=== PATIENT | male | born 1980 | race Caucasian/White ===

== ENCOUNTER → 2016-09-07 | Outpatient (CLI) | payer OTHER ==
[~2016-09-07] MED LIST: ACETAMINOP160 MG/12 PEG; ACID CONTROLLER20 MG GT; BETAPACE80 MG GT; CARDIZEM30 M1 PEG; CLARITIN10 M2 PEG; CLARITIN10 M3 GT; COLACE50 MG/5 ML PEG; DIASENSE MAGNE400 MG GT; FEOSOL300 MG/5 M GT; FEOSOL300 MG/5 M PO; FERROUS GL325 ( 37.5 PEG; FIBER-CAPS625 MG PEG; IBUPROFEN100 MG/52 PEG; IPRAT-ALBUT 0.5-3 ML INH; ISORDIL5 MG PEG; KEPPRA100 MG/ML GT; KEPPRA1000 MG PEG; KEPPRA500 MG/51 GT; LASIX20 MG GT; LASIX20 MG PO; LIORESAL10 MG GT; LISINOPRIL2.5 MG GT; LISINOPRIL2.5 MG PO; LORTAB 10 MG-3473 ML GT; LOVENOX40 MG/0.4 SUBQ; MAG-OX 400400 M1 GT; METOPROLOL TAR25 MG GT; METOPROLOL TAR25 MG PEG; MILK OF MAGNESIA GT; MILK OF MAGNESIA PEG; PAIN RELIE GT; POTASSIUM GT; POTASSIUM20 MEQ/PKT PO; PROAMATINE10 MG GT; PROAMATINE10 MG PEG; PROAMATINE10 MG PO; PROMOD946 ML PEG
== END | disposition home or self-care (01) ==
LOC: CECH 12:16
DX: J90 Pleural effusion, not elsewhere classified (principal)
CPT/HCPCS: 93308

== ENCOUNTER 2016-09-08 13:39 | Inpatient (IN) | payer OTHER ==
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
--- NOTE | ~2016-09-08 | EKG ---
PATIENT: KIMBERLEE SALMON UNIT #: [id number] Ventricular Rate: 129 BPM Atrial Rate: 129 BPM P-R Interval: 146 ms QRS Duration: 78 ms Q-T Interval: 308 ms QTC Calculation(Bezet): 451 ms P Henderson: 50 degrees Calculated R Henderson: 81 degrees Calculated T Henderson: 50 degrees Diagnosis Line: Sinus tachycardia Diagnosis Line: Otherwise normal ECG Diagnosis Line: When compared with ECG of 09-AUG-2016 05:41, Diagnosis Line: No significant change was found Diagnosis Line: Confirmed by AALIYAH PURCELL MD ([id number]) on 09/09/2016 Diagnosis Line: 7:52:09 AM INTERPRETING MD: JAZZY ASHER
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
--- NOTE | ~2016-09-08 | CR72 ---
[facility] A Service of [facility] RADIOLOGY TEXT RESULTS PATIENT: KIMBERLEE SALMON LOCATION: [facility] : 78 UNIT #: [id number] AGE: [address]: Jana Rahman MD SEX: M ORDER DR: [id number] [facility] [address] [address] [id number] E MR#: [id number] Acc #: [id number] NAME: KIMBERLEE SALMON : 1980 SEX: M STUDY DATE/TIME: 09/08/2016 12:59 UNIT: [place] ROOM: STUDY DESCRIPTION: CR Chest Single View Portable Attending Physician: Pascual Jansen M.D. Ordering Physician: Pascual Jansen M.D. Primary Care Physician: No Primary Care Physician MEDICAL IMAGING REPORT This report is preliminary unless electronic signature is present EXAM Chest portable. DATE OF EXAM 09/08/2016, 1259 hours. CLINICAL HISTORY 1-week history of fever, tachycardia, congestion. COMPARISON 08/09/2016 FINDINGS Upright PA and lateral views of the chest demonstrate right PICC line with tip in SVC, left PICC line with tip in SVC without change. There is stable cardiomegaly and benign calcified granulomatous nodes. No acute pulmonary densities or pleural effusions are seen. IMPRESSION 1. Stable positioning of bilateral PICC line with tip in SVC. 2. Stable mild cardiomegaly. 3. The lungs are clear and there are no effusions. Dictated by... Dottie Reyes M.D. THIS IS AN ELECTRONICALLY VERIFIED REPORT Dottie Reyes M.D. at 09/08/2016 6:17 PM ZACH/pearl TD: 09/08/2016 16:43 JOB #: [id number] [facility] A Service of [facility] RADIOLOGY TEXT RESULTS PATIENT: KIMBERLEE SALMON LOCATION: [facility] : [birth year] UNIT #: [id number] AGE: [address]: Jana Rahman MD SEX: M ORDER DR: MEDICAL IMAGING REPORT COPY
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
--- NOTE | ~2016-09-08 | FU ---
[facility] Nutrition Therapy DATE: 09/15/16 Patient: KIMBERLEE SALMON Physician: SARAH Address: [facility] [address] Room/Bed: [address] [place] [address], Zip: [place] [address] Admit Date: 09/08/16 Date of : [birth year] Height: 6 0 Weight: 159 72.4 NUTRITION MONITORING/FOLLOW-UP: Reason: PT SEEN FOR FOLLOW-UP/ENTERAL NUTRITION SUPPORT DX: ENDOCARDITIS, LOW EF, FLU Anthropometrics: 6'0", WT: 159# (72 KG), BMI: 21.6 -WEIGHTS HAVE BEEN STABLE SINCE ADMIT Labs: CREAT: 0.5, CA+:10.3 Meds: NACL, PEPCID, MILK OF MAGNESIA I&O's: 2300/3305 Skin: STAGE 1 PRESSURE ULCER GROIN AREA; SKIN TEAR GROIN AREA; PRESSURE ULCER STAGE 1 COCCYX Estimated Nutrition Needs: [id number] KCAL 106-127 G PRO Assessment: CHART REVIEWED AND EVENTS NOTED. PT SEEN FOR ENTERAL NUTRITION SUPPORT FOLLOW-UP. PT NON-VERBAL RECEIVING RECEIVING ALTERNATIVE NUTRITION SUPPORT OF TWO SUSY HN @ 55 ML/HR. PER RN AND CHART, PT TOLERATING EN. PER 24 HOUR PUMP HISTORY, PT RECEIVING ~93% TOTAL ESTIMATED NEEDS. NO FAMILY IN ROOM AT THIS TIME. RD TO CONTINUE TO FOLLOW. -TUBE FEEDS PROVIDE 2640 KCAL, 110 G PRO, 924 ML FREE H20 Dx: INADEQUATE PROTEIN-ENERGY INTAKE R/T ENTERAL NUTRITION NOT YET INTIATED AEB NPO STATUS, NO ENTERAL NUTRITION SUPPORT IN PLACE. -RESOLVED INADEQUATE ORAL INTAKE R/T PMH AEB NEED FOR ALTERNATIVE NUTRITION SUPPORT. Intervention: 1. ENTERAL NUTRITION IN PLACE Monitoring, Evaluation and Goals: 1. ENTERAL NUTRITION; PROVIDE ~80-100% ESTIMATED NUTRIENT NEEDS 2. WEIGHTS; PROMOTE WEIGHT MAINTENANCE; PROMOTE LEAN BODY MASS 3. LABS; WNL 4. SKIN; PROMOTE SKIN HEALING MONITOR: -TF RATE/RESIDUALS -WEIGHTS [facility] Nutrition Therapy DATE: 09/15/16 Patient: KIMBERLEE SALMON Physician: SARAH Address: [address] Room/Bed: [address] [place] [address], Zip: [place] [address] Admit Date: 09/08/16 Date of : [birth year] Height: 6 0 Weight: 159 72.4 -LABS Recommendations: 1. CONTINUE CURRENT ENTERAL NUTRITION SUPPORT OF TWO SUSY HN @ 55 ML/HR -ADEQUATE FOR PT'S CURRENT ESTIMATED NEEDS CONTINUE FREE H20 FLUSHES PER MD 2. ENSURE HOB IS UPRIGHT TO MINIMUM OF 30-[address] EN ADMINISTR[address] WILL F/U PER PROTOCOL PT IS MILDLY COMPROMISED Respectfully, SALVATORE JOHNSON MS, RD, LD Food and Nutritional Services [facility] cc: client file
--- NOTE | ~2016-09-08 | CR72 ---
[facility] A Service of [facility] RADIOLOGY TEXT RESULTS PATIENT: KIMBERLEE SALMON LOCATION: [place] [address]- : [birth year] UNIT #: [id number] AGE: [address]: Myke Venegas MD SEX: M ORDER DR: [id number] [facility] [address] [place], [place] [address] [id number] I MR#: [id number] Acc #: [id number] NAME: KIMBERLEE SALMON : 1980 SEX: M STUDY DATE/TIME: 09/13/2016 22:09 UNIT: [facility] ROOM: [facility] STUDY DESCRIPTION: CR Chest Single View Portable Attending Physician: Myke Venegas M.D. Ordering Physician: Myke Venegas M.D. Primary Care Physician: No Primary Care Physician MEDICAL IMAGING REPORT This report is preliminary unless electronic signature is present EXAM AP portable chest 09/13/2016 HISTORY A 36-year-old male with 3-yxa-5-week history of shortness of air and congestion. History of endocarditis. TECHNIQUE AP portable upright chest x-ray. FINDINGS The exam suggests mild patchy left lung base infiltrate behind the heart is newly visible since the recent study of 09/08/2016. Remaining portions of both lungs are clear. Heart size and pulmonary vascularity are within normal limits. PICC in good position. IMPRESSION Mild infiltrate or atelectasis in the left lung base, new since 09/08/2016. Dictated by... Yo Hollingsworth M.D. THIS IS AN ELECTRONICALLY VERIFIED REPORT Yo Hollingsworth M.D. at 09/14/2016 9:53 PM PAUL/edda TD: 09/14/2016 06:24 JOB #: [id number] MEDICAL IMAGING REPORT Page 1 of 1 COPY
--- NOTE | ~2016-09-08 | US140 ---
[facility] A Service of [facility] RADIOLOGY TEXT RESULTS PATIENT: KIMBERLEE SALMON LOCATION: [facility] 55 : [birth year] UNIT #: [id number] AGE: [address]: Myke Venegas MD SEX: M ORDER DR: [id number] [facility] [address] [place], [place] [address] [id number] MR#: [id number] Acc #: [id number] NAME: KIMBERLEE SALMON : 1980 SEX: M STUDY DATE/TIME: 09/13/2016 21:20 UNIT: [facility] ROOM: [facility] STUDY DESCRIPTION: US UE Veins Unilat or Ltd Stdy Attending Physician: Myke Venegas M.D. Ordering Physician: Myke Venegas M.D. Primary Care Physician: Primary Care Physician No MEDICAL IMAGING REPORT This report is preliminary unless electronic signature is present EXAM Venous Doppler ultrasound, right arm, 09/13/2016 HISTORY 36-year-old male with 3-day history of right upper extremity swelling. Recent removal of right arm PICC. FINDINGS TECHNIQUE Venous ultrasound examination of the right upper extremity was performed using grayscale, spectral Doppler and color flow Doppler imaging. FINDINGS The examination is negative. There is no evidence of deep venous thrombus within the right internal jugular vein, subclavian vein, axillary vein or brachial veins. No superficial venous thrombus is seen within the cephalic or basilic veins. IMPRESSION Negative examination. No evidence of right upper extremity venous thrombosis. Dictated by... Yo Hollingsworth M.D. THIS IS AN ELECTRONICALLY VERIFIED REPORT Yo Hollingsworth M.D. at 09/14/2016 9:53 PM PAUL/jerome TD: 09/14/2016 06:24 JOB #: [id number] [facility] A Service [facility] RADIOLOGY TEXT RESULTS PATIENT: KIMBERLEE SALMON LOCATION: [facility] : [birth year] UNIT #: [id number] AGE: [address]: Myke Venegas MD SEX: M ORDER DR: MEDICAL IMAGING REPORT Page 1 of 1 COPY
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
[~2016-09-08 13:39] MED LIST changes: -ACID CONTROLLER20 MG GT; -BETAPACE80 MG GT; -CLARITIN10 M3 GT; -FEOSOL300 MG/5 M PO; -KEPPRA100 MG/ML GT; -LASIX20 MG GT; -LASIX20 MG PO; -LIORESAL10 MG GT; -LISINOPRIL2.5 MG GT; -LISINOPRIL2.5 MG PO; -LORTAB 10 MG-3473 ML GT; -MAG-OX 400400 M1 GT; -METOPROLOL TAR25 MG GT; -MILK OF MAGNESIA GT; -PAIN RELIE GT; -POTASSIUM GT; -POTASSIUM20 MEQ/PKT PO; -PROAMATINE10 MG GT; -PROAMATINE10 MG PO
[2016-09-08 13:40] LABS: BASOPHIL% 0.6 % (0-2.5); EOSINOPHIL# 0.2 X10e3 (0-0.7); EOSINOPHIL% 2.1 % (0.0-7.0); HEMATOCRIT 28.5 % (38.0-50.0); HEMOGLOBIN 9.1 gm/dL (13.0-16.0); LYMPHOCYTE# 1.2 X10e3 (1.0-3.5); LYMPHOCYTE% 14.1 % (17.0-45.0); MEAN CELL VOLUME 86.5 FL (83-96); MEAN CORPUSCULAR HEMOGLOBIN 27.5 PG (28-34); MEAN CORPUSCULAR HGB CONC 31.8 g/dL (30-36); MONOCYTE# 0.8 X10e3 (0-1.0); NEUTROPHIL# 6.2 X10e3 (1.5-7.1); NEUTROPHIL% 74.2 % (40-75); PLATELET COUNT 380 X10e3 (140-420); WHITE BLOOD COUNT 8.4 X10e3 (4.0-10.5)
[2016-09-08 13:41] LABS: DIFF IND NO
[2016-09-08 13:46] LABS: POC - CKMB <1.0 ng/mL (0.0-7.9); POC - TROPONIN <0.05 ng/mL (<=0.05)
[2016-09-08 13:54] LABS: INR 1.1; PARTIAL THROMBOPLASTIN TIME 29.6 SECONDS (23.5-31.3); PROTHROMBIN TIME (PATIENT) 11.3 SECONDS (9.6-11.5)
[2016-09-08 14:09] LABS: ALBUMIN SERUM 3.3 g/dL (3.5-5.0); ALKALINE PHOSPHATASE 121 U/L (32-92); ALT (SGPT) 126 U/L (10-40); AST (SGOT) 49 U/L (10-42); BILIRUBIN, DIRECT 0.1 mg/dL (0.0-0.2); BILIRUBIN,INDIRECT 0.3 mg/dL (0.0-0.9); BILIRUBIN,TOTAL 0.4 mg/dL (0.2-2.0); BLOOD UREA NITROGEN 24 mg/dL (9-23); CALCIUM SERUM 10.2 mg/dL (8.4-10.2); CARBON DIOXIDE 29 mmol/L (22-31); CHLORIDE 99 mmol/L (100-111); CREATININE SERUM 0.5 mg/dL (0.6-1.4); GLOM FILT RATE Estimated ABOVE60 mL/min (>60); GLUCOSE FASTING 99 mg/dL (70-110); POTASSIUM 4.3 mmol/L (3.5-5.1); PROTEIN TOTAL SERUM 8.4 g/dL (6.0-8.3); SODIUM 136 mmol/L (135-145)
[2016-09-08 14:23] LABS: CULTURE INDICATED? YES; URINE APPEARANCE CLOUDY; URINE BACTERIA AUWI 4+ (NEGATIVE); URINE BILIRUBIN NEG (NEG); URINE BLOOD 2+ (NEG); URINE COLOR YELLOW; URINE GLUCOSE NEG (NEG); URINE KETONE NEG (NEG); URINE LEUKOCYTE ESTERASE 1+ (NEG); URINE NITRATE NEG (NEG); URINE PH 6.5 (5-8); URINE PROTEIN NEG (NEG); URINE SPECIFIC GRAVITY 1.031 (1.003-1.035); URINE SQUAMOUS EPITHELIAL CELL OCC /[HPF]; URINE UROBILINOGEN 0.2 MG/DL (NEG)
[2016-09-08] MEDS ORDERED: IPRAT-ALBUT 0.5-3 ML INH ×2 (14:41→14:47)
[2016-09-08] MEDS ORDERED: PROAMATINE10 MG PO (14:42)
[2016-09-08] MEDS ORDERED: POTASSIUM20 MEQ/PKT PO (14:43)
[2016-09-08] MEDS ORDERED: LISINOPRIL2.5 MG PO (14:44)
[2016-09-08] MEDS ORDERED: LASIX20 MG PO (14:45)
[2016-09-08] MEDS ORDERED: FEOSOL300 MG/5 M PO (14:45)
[2016-09-08 14:46] LABS: INFLUENZA A POS (NEG); INFLUENZA B NEG (NEG)
[2016-09-08] MEDS ORDERED: PROAMATINE10 MG GT (14:47)
[2016-09-08] MEDS ORDERED: POTASSIUM GT (14:48)
[2016-09-08] MEDS ORDERED: LISINOPRIL2.5 MG GT (14:48)
[2016-09-08] MEDS ORDERED: LASIX20 MG GT (14:49)
[2016-09-08] MEDS ORDERED: ACID CONTROLLER20 MG GT (14:49)
[2016-09-08] MEDS ORDERED: FEOSOL300 MG/5 M GT (14:49)
[2016-09-08] MEDS ORDERED: BETAPACE80 MG GT (14:50)
[2016-09-08] MEDS ORDERED: MAG-OX 400400 M1 GT (14:51)
[2016-09-08] MEDS ORDERED: KEPPRA100 MG/ML GT (14:51)
[2016-09-08] MEDS ORDERED: METOPROLOL TAR25 MG GT (14:52)
[2016-09-08] MEDS ORDERED: CLARITIN10 M3 GT (14:53)
[2016-09-08] MEDS ORDERED: LORTAB 10 MG-3473 ML GT (14:59)
[2016-09-08] MEDS ORDERED: PAIN RELIE GT (15:00)
[2016-09-08] MEDS ORDERED: MILK OF MAGNESIA GT (15:02)
[2016-09-08] MEDS ORDERED: LIORESAL10 MG GT (15:02)
[2016-09-08 20:44] LABS: CK TOTAL 30 IU/L (36-174)
[2016-09-09 02:22] LABS: %MB 0.9 % (0.0-4.0)
[2016-09-09 02:33] LABS: BASOPHIL# 0.1 X10e3 (0-0.3); BASOPHIL% 1.2 % (0-2.5); EOSINOPHIL# 0.1 X10e3 (0-0.7); EOSINOPHIL% 2.4 % (0.0-7.0); LYMPHOCYTE# 1.3 X10e3 (1.0-3.5); LYMPHOCYTE% 20.9 % (17.0-45.0); MEAN CELL VOLUME 86.1 FL (83-96); MEAN CORPUSCULAR HEMOGLOBIN 27.6 PG (28-34); MEAN CORPUSCULAR HGB CONC 32.1 g/dL (30-36); MEAN PLATELET VOLUME 8.5 FL (6.5-11.5); MONOCYTE# 0.5 X10e3 (0-1.0); MONOCYTE% 8.4 % (3.0-12.0); NEUTROPHIL# 4.2 X10e3 (1.5-7.1); NEUTROPHIL% 67.1 % (40-75); PLATELET COUNT 318 X10e3 (140-420); RED BLOOD COUNT 2.91 X10e (3.90-5.60); RED CELL DISTRIBUTION WIDTH 16.3 % (11.0-15.5); WHITE BLOOD COUNT 6.2 X10e3 (4.0-10.5)
[2016-09-09 02:36] LABS: DIFF IND NO
[2016-09-09 02:56] LABS: ALKALINE PHOSPHATASE 104 U/L (32-92); ALT (SGPT) 97 U/L (10-40); AST (SGOT) 38 U/L (10-42); BILIRUBIN,TOTAL 0.7 mg/dL (0.2-2.0); BLOOD UREA NITROGEN 19 mg/dL (9-23); CALCIUM SERUM 9.4 mg/dL (8.4-10.2); CARBON DIOXIDE 24 mmol/L (22-31); CHLORIDE 101 mmol/L (100-111); CREATININE SERUM 0.5 mg/dL (0.6-1.4); GLOM FILT RATE Estimated ABOVE60 mL/min (>60); GLUCOSE FASTING 91 mg/dL (70-110); POTASSIUM 3.7 mmol/L (3.5-5.1); PROTEIN TOTAL SERUM 7.6 g/dL (6.0-8.3); SODIUM 134 mmol/L (135-145)
[2016-09-10 04:36] LABS: HEMATOCRIT 24.9 % (38.0-50.0); MEAN CORPUSCULAR HEMOGLOBIN 27.6 PG (28-34); MEAN CORPUSCULAR HGB CONC 32.1 g/dL (30-36); MEAN PLATELET VOLUME 8.2 FL (6.5-11.5); RED BLOOD COUNT 2.89 X10e (3.90-5.60); RED CELL DISTRIBUTION WIDTH 15.9 % (11.0-15.5); WHITE BLOOD COUNT 4.5 X10e3 (4.0-10.5)
[2016-09-10 05:00] LABS: BLOOD UREA NITROGEN 15 mg/dL (9-23); CALCIUM SERUM 9.3 mg/dL (8.4-10.2); CARBON DIOXIDE 28 mmol/L (22-31); CHLORIDE 102 mmol/L (100-111); CREATININE SERUM 0.5 mg/dL (0.6-1.4); GLOM FILT RATE Estimated ABOVE60 mL/min (>60); GLUCOSE FASTING 106 mg/dL (70-110); POTASSIUM 3.8 mmol/L (3.5-5.1); SODIUM 137 mmol/L (135-145)
[2016-09-11 07:44] LABS: HEMATOCRIT 24.3 % (38.0-50.0); MEAN CELL VOLUME 85.6 FL (83-96); MEAN CORPUSCULAR HEMOGLOBIN 28.1 PG (28-34); MEAN CORPUSCULAR HGB CONC 32.8 g/dL (30-36); MEAN PLATELET VOLUME 8.6 FL (6.5-11.5); RED BLOOD COUNT 2.83 X10e (3.90-5.60); WHITE BLOOD COUNT 4.4 X10e3 (4.0-10.5)
[2016-09-11 08:05] LABS: BLOOD UREA NITROGEN 12 mg/dL (9-23); CALCIUM SERUM 9.5 mg/dL (8.4-10.2); CARBON DIOXIDE 26 mmol/L (22-31); CHLORIDE 107 mmol/L (100-111); CREATININE SERUM 0.5 mg/dL (0.6-1.4); GLOM FILT RATE Estimated ABOVE60 mL/min (>60); GLUCOSE FASTING 108 mg/dL (70-110); POTASSIUM 4.1 mmol/L (3.5-5.1); SODIUM 140 mmol/L (135-145)
[2016-09-12 07:42] LABS: HEMATOCRIT 23.8 % (38.0-50.0); HEMOGLOBIN 7.7 gm/dL (13.0-16.0); MEAN CELL VOLUME 86.6 FL (83-96); MEAN CORPUSCULAR HGB CONC 32.3 g/dL (30-36); MEAN PLATELET VOLUME 8.7 FL (6.5-11.5); RED BLOOD COUNT 2.75 X10e (3.90-5.60); WHITE BLOOD COUNT 4.8 X10e3 (4.0-10.5)
[2016-09-12 08:04] LABS: BLOOD UREA NITROGEN 9 mg/dL (9-23); CALCIUM SERUM 9.3 mg/dL (8.4-10.2); CARBON DIOXIDE 26 mmol/L (22-31); CHLORIDE 105 mmol/L (100-111); CREATININE SERUM 0.4 mg/dL (0.6-1.4); GLOM FILT RATE Estimated ABOVE60 mL/min (>60); GLUCOSE FASTING 106 mg/dL (70-110); SODIUM 138 mmol/L (135-145)
[2016-09-13 08:02] LABS: HEMATOCRIT 24.7 % (38.0-50.0); MEAN CELL VOLUME 86.2 FL (83-96); MEAN CORPUSCULAR HGB CONC 32.5 g/dL (30-36); MEAN PLATELET VOLUME 8.2 FL (6.5-11.5); RED BLOOD COUNT 2.87 X10e (3.90-5.60); RED CELL DISTRIBUTION WIDTH 16.3 % (11.0-15.5); WHITE BLOOD COUNT 4.4 X10e3 (4.0-10.5)
[2016-09-13 08:29] LABS: BLOOD UREA NITROGEN 10 mg/dL (9-23); CALCIUM SERUM 9.5 mg/dL (8.4-10.2); CARBON DIOXIDE 27 mmol/L (22-31); CHLORIDE 101 mmol/L (100-111); CREATININE SERUM 0.4 mg/dL (0.6-1.4); GLOM FILT RATE Estimated ABOVE60 mL/min (>60); GLUCOSE FASTING 97 mg/dL (70-110); MAGNESIUM 1.9 mg/dL (1.6-3.0); POTASSIUM 3.9 mmol/L (3.5-5.1); SODIUM 135 mmol/L (135-145)
[2016-09-14 09:03] LABS: HEMATOCRIT 34.9 % (38.0-50.0); MEAN CELL VOLUME 85.7 FL (83-96); MEAN CORPUSCULAR HEMOGLOBIN 28.1 PG (28-34); MEAN CORPUSCULAR HGB CONC 32.8 g/dL (30-36); MEAN PLATELET VOLUME 8.6 FL (6.5-11.5); RED BLOOD COUNT 4.08 X10e (3.90-5.60)
[2016-09-14 09:18] LABS: WHITE BLOOD COUNT 6.9 X10e3 (4.0-10.5)
[2016-09-14 09:19] LABS: HEMOGLOBIN 11.4 gm/dL (13.0-16.0)
[2016-09-14 10:14] LABS: BUN/CREATININE RATIO 32.5; CALCIUM SERUM 10.2 mg/dL (8.4-10.2); CREATININE SERUM 0.4 mg/dL (0.6-1.4); GLOM FILT RATE Estimated 150.7 mL/min (>60); POTASSIUM 4.2 mmol/L (3.5-5.1)
[2016-09-15 05:44] LABS: HEMATOCRIT 35.4 % (38.0-50.0); HEMOGLOBIN 11.6 gm/dL (13.0-16.0); MEAN CELL VOLUME 85.6 FL (83-96); MEAN CORPUSCULAR HEMOGLOBIN 28.1 PG (28-34); MEAN CORPUSCULAR HGB CONC 32.9 g/dL (30-36); MEAN PLATELET VOLUME 8.5 FL (6.5-11.5); RED BLOOD COUNT 4.14 X10e (3.90-5.60); RED CELL DISTRIBUTION WIDTH 16.4 % (11.0-15.5); WHITE BLOOD COUNT 5.9 X10e3 (4.0-10.5)
[2016-09-15 06:13] LABS: CALCIUM SERUM 10.3 mg/dL (8.4-10.2); CREATININE SERUM 0.5 mg/dL (0.6-1.4); GLOM FILT RATE Estimated 137.5 mL/min (>60); POTASSIUM 4.2 mmol/L (3.5-5.1)
[2016-09-16 05:44] LABS: CALCIUM SERUM 10.7 mg/dL (8.4-10.2); CREATININE SERUM 0.5 mg/dL (0.6-1.4); GLOM FILT RATE Estimated 137.5 mL/min (>60); POTASSIUM 4.4 mmol/L (3.5-5.1)
== END 2016-09-16 14:22 | DRG 871 ==
LOC: CED 13:39 → CEDOF 18:55 → C5B 22:53
PROVIDERS: Emergency Medicine; Family Medicine; Internal Medicine; Nurse Practitioner
PROC: 30233N1 Transfusion of Nonautologous Red Blood Cells into Peripheral Vein, Percutaneous Approach (ICD-10-PCS; principal; 2016-09-14)
DX: A41.89 Other specified sepsis (principal); R53.2 Functional quadriplegia; I50.23 Acute on chronic systolic (congestive) heart failure; R56.9 Unspecified convulsions; L89.159 Pressure ulcer of sacral region, unspecified stage; N39.0 Urinary tract infection, site not specified; R47.01 Aphasia; B96.1 Klebsiella pneumoniae [K. pneumoniae] as the cause of diseases classified elsewhere; B96.89 Other specified bacterial agents as the cause of diseases classified elsewhere; J10.1 Influenza due to other identified influenza virus with other respiratory manifestations; Z87.820 Personal history of traumatic brain injury; D63.8 Anemia in other chronic diseases classified elsewhere; Z87.01 Personal history of pneumonia (recurrent); Z66 Do not resuscitate; B95.62 Methicillin resistant Staphylococcus aureus infection as the cause of diseases classified elsewhere
CPT/HCPCS: 36415; 71010; 80048; 80053; 80076; 80202; 81003; 82550; 82553; 82947; 83605; 83735; 84484; 85025; 85027; 85610; 85730; 86850; 86900; 86901; 86923; 87040; 87070; 87077; 87086; 87186; 87804; 93005; 93971; 94640; 94760; 96360; 99285; J0696; J1650; J1940; J2185; J3260; J3370; P9016